=== PATIENT | female | born 1945 | race Caucasian/White ===

== ENCOUNTER 2017-11-04 09:09 | Inpatient (IN) ==
[2017-11-04] MEDS ORDERED: SODIUM CHLORIDE 0.9% 1,000 ML IV STA (10:12)
[2017-11-04 10:25] LABS: Basophils # 0.1 10*3/uL (0.0-0.2); Basophils % 0.6 % (0.0-0.8); Eosinophils % 0.3 % (0.00-10.9); Hematocrit 39.2 VOL% (35.7-47.0); Hemoglobin 12.8 GM/DL (12.0-16.0); Immature Granulocytes Absolute 0.13 #; Lymphocytes # 2.1 10*3/uL (1.4-4.0); Lymphocytes % 16.1 % (21.3-54.2); Mean Corpuscular HGB Conc 32.7 GM/DL (32-36); Mean Corpuscular Hemoglobin 30 PG (27-34); Mean Corpuscular Volume 91.2 FL (87-102); Monocytes % 7.5 % (1.7-12.7); Neutrophils # 9.5 10*3/uL (1.4-7.4); Neutrophils % 74.5 % (38.7-73.9); Platelet Count 223 T/CUMM (130-400); Red Cell Distribution Width 14.3 % (9.3-17.3); White Blood Count 12.7 T/CUMM (4-12)
[2017-11-04 10:31] LABS: PT Patient Result 10.8 SECS; Partial Thromboplastin Time 24.2 SECS (0-40)
[2017-11-04 10:38] LABS: Alanine Aminotransferase 35 U/L (13-56); Albumin 3.2 G/DL (3.4-5.0); Alkaline Phosphatase 96 U/L (45-117); Aspartate Amino Transferase 26 U/L (0-37); Blood Urea Nitrogen 13 MG/DL (7-18); Calcium 8.9 MG/DL (8.5-10.1); Glucose 143 MG/DL (74-106); Magnesium 1.9 MG/DL (1.8-2.4); Sodium 136 MMOL/L (136-145); Total Protein 6.8 G/DL (6.4-8.3); Troponin I Only < 0.015 NG/ML (0.00-0.045)
[2017-11-04] MEDS ORDERED: DILTIAZEM 100 MG VIAL.ADD IV ONE (10:49)
[2017-11-04] MEDS ORDERED: SODIUM CHLORIDE 0.9% 100 ML IV ONE (10:49)
[2017-11-04] MEDS: DILTIAZEM INJ 100 MG in SODIUM CHLORIDE 0.9% 100 ML IV SCH (11:00)
[2017-11-04 11:28] LABS: T4 (Thyroxine) 8.8 UG/DL (4.7-13.3); Thyroid Stimulating Hormone 4.57 uIU/ml (0.358-3.74)
[2017-11-04 11:39] LABS: Apearance,Urine CLEAR (Clear); Bilirubin,Urine Negative (Negative); Blood, Urine Negative (Negative); Glucose,Urine (UA) Negative (Negative); Hyaline Casts,Urine 4 /LPF (0-3); Ketones,Urine Negative (Negative); Mucus,Urine Occasional /LPF (Occasional); Nitrite,Urine Negative (Negative); Protein,Urine Negative; Urine Color Yellow (Yellow); Urine Specific Gravity 1.008 (1.001-1.035); Urine Urobilinogen < 2.0 EU/DL (0.2-1.0); WBC,Urine <1 /HPF (0-6)
[2017-11-04] MEDS ORDERED: LEVOFLOXACIN INJ 750 MG in PREMIX 1 EACH IV STA (11:52)
[2017-11-04] MEDS ORDERED: ALBUTEROL 2.5 MG/3 ML NEB RESP TX PRN (12:33)
[2017-11-04] MEDS ORDERED: ACETAMINOPHEN 325 MG TABLET PO PRN (12:44)
[2017-11-04] MEDS ORDERED: ONDANSETRON 4 MG/2 ML VIAL IV PRN (12:44)
[2017-11-04] MEDS ORDERED: LEVOFLOXACIN INJ 150 ML IV ONE (13:21)
[2017-11-04] MEDS ORDERED: SODIUM CHLORIDE 0.9% 1,000 ML IV ONE (13:43)
[2017-11-04] MEDS: SODIUM CHLORIDE 0.9% 1,000 ML IV SCH ×3 (13:50→22:40)
[2017-11-04] MEDS ORDERED: ENOXAPARIN 60 MG/0.6 ML SYRINGE SUBCUT SCH (15:00)
[2017-11-04] MEDS ORDERED: OSELTAMIVIR 75 MG CAPSULE PO SCH (15:00)
[2017-11-04] MEDS ORDERED: METOPROLOL TARTRATE 25 MG TABLET PO SCH (15:00)
[2017-11-04] MEDS: ALBUTEROL 2.5 MG/3 ML NEB RESP TX SCH ×3 (15:58→23:39)
[2017-11-04] MEDS: PIPERACILLIN/TAZOBACTAM 3,375 MG in SODIUM CHLORIDE 0.9% 100 ML IV SCH ×2 (16:36→23:48)
[2017-11-04] MEDS ORDERED: ALBUTEROL/IPRATROPIUM 3 ML NEB RESP TX SCH (19:00)
[2017-11-04] MEDS ORDERED: ENOXAPARIN 40 MG/0.4 ML SYRINGE SUBCUT SCH (21:00)
[2017-11-04] MEDS ORDERED: SOTALOL 80 MG TABLET PO SCH (21:00)
[2017-11-04] MEDS: APIXABAN 5 MG TABLET PO SCH (21:09)
[2017-11-04] MEDS: SOTALOL 80 MG TABLET PO SCH (21:09)
[2017-11-04] MEDS: OSELTAMIVIR 75 MG CAPSULE PO SCH (21:09)
[2017-11-04] MEDS ORDERED: guaiFENesin 200 MG/10 ML UDCUP PO PRN (22:20)
[2017-11-05] MEDS: traZODone 50 MG TABLET PO SCH ×2 (00:01→20:39)
[2017-11-05] MEDS: ALBUTEROL 2.5 MG/3 ML NEB RESP TX SCH ×5 (02:50→20:44)
[2017-11-05 03:22] LABS: Basophils # 0.1 10*3/uL (0.0-0.2); Basophils % 0.5 % (0.0-0.8); Eosinophils % 0.3 % (0.00-10.9); Hematocrit 34.4 VOL% (35.7-47.0); Hemoglobin 11.4 GM/DL (12.0-16.0); Immature Granulocytes % 0.4 %; Immature Granulocytes Absolute 0.04 #; Lymphocytes # 1.4 10*3/uL (1.4-4.0); Mean Corpuscular HGB Conc 33.1 GM/DL (32-36); Mean Corpuscular Hemoglobin 30 PG (27-34); Mean Corpuscular Volume 90.3 FL (87-102); Mean Platelet Volume 11.2 FL (9.6-12.0); Monocytes # 0.9 10*3/uL (0.11-0.8); Monocytes % 8.4 % (1.7-12.7); Neutrophils # 7.7 10*3/uL (1.4-7.4); Neutrophils % 76.4 % (38.7-73.9); Platelet Count 210 T/CUMM (130-400); Red Blood Count 3.81 MC/CUMM (3.8-5.5); Red Cell Distribution Width 14.2 % (9.3-17.3); White Blood Count 10.1 T/CUMM (4-12)
[2017-11-05 03:30] LABS: INR 1.1; PT Patient Result 11.4 SECS
[2017-11-05 03:52] LABS: Calcium 8.1 MG/DL (8.5-10.1); Osmolality,Calculated 282.1 MOS/KG (273-304)
[2017-11-05] MEDS: SODIUM CHLORIDE 0.9% 1,000 ML IV SCH ×3 (06:12→21:10)
[2017-11-05] MEDS: DILTIAZEM INJ 100 MG in SODIUM CHLORIDE 0.9% 100 ML IV SCH ×2 (06:23→12:11)
[2017-11-05] MEDS: LEVOTHYROXINE 50 MCG TABLET PO SCH (06:24)
[2017-11-05] MEDS: APIXABAN 5 MG TABLET PO SCH ×2 (09:46→20:36)
[2017-11-05] MEDS: PANTOPRAZOLE 40 MG TABLET PO SCH (09:46)
[2017-11-05] MEDS: PIPERACILLIN/TAZOBACTAM 3,375 MG in SODIUM CHLORIDE 0.9% 100 ML IV SCH ×3 (09:46→23:57)
[2017-11-05] MEDS: SOTALOL 80 MG TABLET PO SCH ×2 (09:46→20:35)
[2017-11-05] MEDS: OSELTAMIVIR 75 MG CAPSULE PO SCH ×2 (09:46→20:36)
[2017-11-05] MEDS: DILTIAZEM CD 120 MG CAPSULE PO SCH ×2 (12:12→20:36)
[2017-11-05] MEDS ORDERED: LEVOFLOXACIN INJ 500 MG in PREMIX 1 EACH IV SCH (13:00)
[2017-11-05] MEDS: LORazepam 0.5 MG TABLET PO SCH (20:36)
[2017-11-05] MEDS ORDERED: LORazepam 0.5 MG TABLET PO SCH (21:00)
[2017-11-06] MEDS: ALBUTEROL 2.5 MG/3 ML NEB RESP TX SCH ×7 (00:27→23:57)
[2017-11-06 06:34] LABS: Magnesium 1.9 MG/DL (1.8-2.4); Osmolality,Calculated 279.1 MOS/KG (273-304)
[2017-11-06] MEDS ORDERED: ALBUTEROL 2.5 MG/3 ML NEB RESP TX ONE (06:53)
[2017-11-06] MEDS: SOTALOL 80 MG TABLET PO SCH ×2 (09:47→20:52)
[2017-11-06] MEDS: APIXABAN 5 MG TABLET PO SCH ×2 (09:47→20:53)
[2017-11-06] MEDS: PANTOPRAZOLE 40 MG TABLET PO SCH (09:48)
[2017-11-06] MEDS: DILTIAZEM CD 120 MG CAPSULE PO SCH ×2 (09:48→20:53)
[2017-11-06] MEDS: OSELTAMIVIR 75 MG CAPSULE PO SCH ×2 (09:48→20:53)
[2017-11-06] MEDS: LORazepam 0.5 MG TABLET PO SCH ×2 (09:49→20:51)
[2017-11-06] MEDS: LEVOTHYROXINE 50 MCG TABLET PO SCH (09:51)
[2017-11-06] MEDS: PIPERACILLIN/TAZOBACTAM 3,375 MG in SODIUM CHLORIDE 0.9% 100 ML IV SCH ×2 (09:51→16:00)
[2017-11-06] MEDS: SODIUM CHLORIDE 0.9% 1,000 ML IV SCH ×2 (13:04→15:05)
[2017-11-06] MEDS ORDERED: diphenhydrAMINE 2% CREAM 28 GM TUBE TOP PRN (17:48)
[2017-11-06] MEDS: traZODone 50 MG TABLET PO SCH (20:53)
[2017-11-07] MEDS: PIPERACILLIN/TAZOBACTAM 3,375 MG in SODIUM CHLORIDE 0.9% 100 ML IV SCH ×3 (00:16→16:00)
[2017-11-07] MEDS: ALBUTEROL 2.5 MG/3 ML NEB RESP TX SCH ×5 (03:52→21:02)
[2017-11-07 05:10] LABS: Basophils # 0.1 10*3/uL (0.0-0.2); Basophils % 0.8 % (0.0-0.8); Eosinophils # 0.2 10*3/uL (0.0-0.87); Eosinophils % 2.5 % (0.00-10.9); Hematocrit 33.2 VOL% (35.7-47.0); Hemoglobin 10.9 GM/DL (12.0-16.0); Immature Granulocytes % 0.7 %; Immature Granulocytes Absolute 0.05 #; Lymphocytes # 1.9 10*3/uL (1.4-4.0); Lymphocytes % 26.5 % (21.3-54.2); Mean Corpuscular HGB Conc 32.8 GM/DL (32-36); Mean Corpuscular Hemoglobin 30 PG (27-34); Mean Corpuscular Volume 91.2 FL (87-102); Mean Platelet Volume 10.4 FL (9.6-12.0); Monocytes # 0.7 10*3/uL (0.11-0.8); Monocytes % 9.5 % (1.7-12.7); Neutrophils # 4.3 10*3/uL (1.4-7.4); Platelet Count 241 T/CUMM (130-400); Red Blood Count 3.64 MC/CUMM (3.8-5.5); Red Cell Distribution Width 13.7 % (9.3-17.3); White Blood Count 7.1 T/CUMM (4-12)
[2017-11-07 05:48] LABS: Calcium 8.7 MG/DL (8.5-10.1); Potassium 3.9 MMOL/L (3.5-5.1)
[2017-11-07] MEDS: LEVOTHYROXINE 50 MCG TABLET PO SCH (06:12)
[2017-11-07] MEDS: SOTALOL 80 MG TABLET PO SCH ×2 (08:56→20:40)
[2017-11-07] MEDS: DILTIAZEM CD 120 MG CAPSULE PO SCH ×2 (08:56→20:40)
[2017-11-07] MEDS: OSELTAMIVIR 75 MG CAPSULE PO SCH ×2 (08:57→20:40)
[2017-11-07] MEDS: APIXABAN 5 MG TABLET PO SCH ×2 (08:57→20:40)
[2017-11-07] MEDS: PANTOPRAZOLE 40 MG TABLET PO SCH (08:57)
[2017-11-07] MEDS: LORazepam 0.5 MG TABLET PO SCH ×2 (09:20→20:40)
[2017-11-07] MEDS: traZODone 50 MG TABLET PO SCH (20:41)
[2017-11-08] MEDS: ALBUTEROL 2.5 MG/3 ML NEB RESP TX SCH ×4 (00:23→11:03)
[2017-11-08] MEDS: PIPERACILLIN/TAZOBACTAM 3,375 MG in SODIUM CHLORIDE 0.9% 100 ML IV SCH ×2 (00:46→07:55)
[2017-11-08 05:53] LABS: Basophils # 0.1 10*3/uL (0.0-0.2); Basophils % 0.9 % (0.0-0.8); Eosinophils # 0.2 10*3/uL (0.0-0.87); Eosinophils % 2.5 % (0.00-10.9); Hematocrit 35.6 VOL% (35.7-47.0); Hemoglobin 11.5 GM/DL (12.0-16.0); Immature Granulocytes % 1.1 %; Immature Granulocytes Absolute 0.08 #; Lymphocytes # 1.9 10*3/uL (1.4-4.0); Lymphocytes % 24.6 % (21.3-54.2); Mean Corpuscular HGB Conc 32.3 GM/DL (32-36); Mean Corpuscular Hemoglobin 30 PG (27-34); Mean Corpuscular Volume 92.7 FL (87-102); Mean Platelet Volume 10.6 FL (9.6-12.0); Monocytes # 0.6 10*3/uL (0.11-0.8); Monocytes % 7.7 % (1.7-12.7); Neutrophils # 4.7 10*3/uL (1.4-7.4); Neutrophils % 63.2 % (38.7-73.9); Platelet Count 284 T/CUMM (130-400); Red Blood Count 3.84 MC/CUMM (3.8-5.5); Red Cell Distribution Width 13.8 % (9.3-17.3); White Blood Count 7.5 T/CUMM (4-12)
[2017-11-08] MEDS: LEVOTHYROXINE 50 MCG TABLET PO SCH (06:14)
[2017-11-08 06:15] LABS: Calcium 9.1 MG/DL (8.5-10.1); Magnesium 2.2 MG/DL (1.8-2.4); Osmolality,Calculated 279.3 MOS/KG (273-304); Potassium 4.1 MMOL/L (3.5-5.1)
[2017-11-08] MEDS: OSELTAMIVIR 75 MG CAPSULE PO SCH ×2 (07:55→08:45)
[2017-11-08] MEDS: APIXABAN 5 MG TABLET PO SCH ×2 (07:55→08:45)
[2017-11-08] MEDS: PANTOPRAZOLE 40 MG TABLET PO SCH ×2 (07:55→08:45)
[2017-11-08] MEDS: SOTALOL 80 MG TABLET PO SCH ×2 (07:56→08:44)
[2017-11-08] MEDS: DILTIAZEM CD 120 MG CAPSULE PO SCH ×2 (07:56→08:44)
[2017-11-08] MEDS: LORazepam 0.5 MG TABLET PO SCH (08:11)
[2017-11-08 12:20] VITALS: BP 121/80
== END 2017-11-08 13:30 | disposition home or self-care (01) | DRG 308 ==
LOC: N.ED 09:09 → N.EDINP 12:32 → SUATTDRO 12:32 → N.TELEN 14:25
PROVIDERS: ADMIT Internal Medicine; ATTEND Internal Medicine

== ENCOUNTER 2022-01-05 10:21 | Inpatient (IN) ==
[2022-01-05] MEDS ORDERED: ACETAMINOPHEN 325 MG TABLET ONE (11:42)
[2022-01-05] MEDS ORDERED: ACETAMINOPHEN 325 MG TABLET PO ONE (11:57)
[2022-01-05 12:01] LABS: Basophils # 0.1 10*3/uL (0.0-0.2); Basophils % 0.9 % (0.0-0.8); Eosinophils # 0.2 10*3/uL (0.0-0.87); Eosinophils % 3.1 % (0.00-10.9); Hematocrit 43.6 VOL% (35.7-47.0); Hemoglobin 14.2 GM/DL (12.0-16.0); Immature Granulocytes % 0.3 %; Immature Granulocytes Absolute 0.02 #; Lymphocytes # 2.3 10*3/uL (1.4-4.0); Lymphocytes % 29.4 % (21.3-54.2); Mean Corpuscular HGB Conc 32.6 GM/DL (32-36); Mean Corpuscular Volume 90.3 FL (87-102); Mean Platelet Volume 10.8 FL (9.6-12.0); Monocytes % 11.3 % (1.7-12.7); Platelet Count 160 T/CUMM (130-400); Red Blood Count 4.83 MC/CUMM (3.8-5.5); Red Cell Distribution Width 13.4 % (9.3-17.3); White Blood Count 7.8 T/CUMM (4-12)
[2022-01-05 12:26] LABS: Albumin 3.6 G/DL (3.4-5.0); Bilirubin,Total 0.7 MG/DL (0.20-1.00); Calcium 9.7 MG/DL (8.5-10.1); Osmolality,Calculated 277.5 MOS/KG (273-304); Potassium 3.8 MMOL/L (3.5-5.1); Total Protein 7.2 G/DL (6.4-8.2)
[2022-01-05] MEDS ORDERED: DILTIAZEM 50 MG/10 ML VIAL IV STA (13:12)
[2022-01-05] MEDS ORDERED: ONDANSETRON 4 MG/2 ML VIAL IV PRN (14:10)
[2022-01-05] MEDS ORDERED: GLUCAGON 1 MG VIAL IM PRN (14:10)
[2022-01-05] MEDS ORDERED: DEXTROSE 10% 250 ML BAG IV PRN (14:21)
[2022-01-05] MEDS ORDERED: DILTIAZEM INJ 100 MG in SODIUM CHLORIDE 0.9% 100 ML IV SCH (15:00)
[2022-01-05] MEDS: ENOXAPARIN 40 MG/0.4 ML SYRINGE SUBCUT SCH (15:02)
[2022-01-05] MEDS ORDERED: DIGOXIN 0.5 MG/2 ML AMP IV STA (15:26)
[2022-01-05] MEDS: METOPROLOL TARTRATE 25 MG TABLET PO SCH ×2 (16:00→20:48)
[2022-01-05] MEDS: SODIUM CHLORIDE 0.45% 1,000 ML IV SCH (16:07)
[2022-01-05] MEDS: ASPIRIN EC 325 MG TABLET PO SCH (20:48)
[2022-01-05] MEDS: ASCORBIC ACID 500 MG TABLET PO SCH (20:48)
[2022-01-05] MEDS: DOCUSATE SODIUM 100 MG CAPSULE PO PRN (20:51)
[2022-01-05] MEDS ORDERED: SOTALOL 80 MG TABLET PO SCH (21:00)
[2022-01-06] MEDS: busPIRone 5 MG TABLET PO SCH ×5 (00:18→21:14)
[2022-01-06 04:31] LABS: Basophils # 0.1 10*3/uL (0.0-0.2); Eosinophils # 0.2 10*3/uL (0.0-0.87); Eosinophils % 2.9 % (0.00-10.9); Hematocrit 39.6 VOL% (35.7-47.0); Hemoglobin 12.8 GM/DL (12.0-16.0); Immature Granulocytes % 0.4 %; Immature Granulocytes Absolute 0.03 #; Lymphocytes # 2.6 10*3/uL (1.4-4.0); Lymphocytes % 30.6 % (21.3-54.2); Mean Corpuscular HGB Conc 32.3 GM/DL (32-36); Mean Corpuscular Volume 91.7 FL (87-102); Mean Platelet Volume 11.1 FL (9.6-12.0); Monocytes % 11.3 % (1.7-12.7); Neutrophils % 53.8 % (38.7-73.9); Platelet Count 160 T/CUMM (130-400); Red Blood Count 4.32 MC/CUMM (3.8-5.5); Red Cell Distribution Width 13.5 % (9.3-17.3); White Blood Count 8.3 T/CUMM (4-12)
[2022-01-06 04:42] LABS: Calcium 8.9 MG/DL (8.5-10.1); Osmolality,Calculated 275.7 MOS/KG (273-304); Potassium 3.7 MMOL/L (3.5-5.1)
[2022-01-06] MEDS: LEVOTHYROXINE 50 MCG TABLET PO SCH (06:31)
[2022-01-06] MEDS ORDERED: AMIODARONE INJ 150 MG in DEXTROSE 5% 100 ML IV ONE (08:24)
[2022-01-06] MEDS ORDERED: AMIODARONE INJ 450 MG in DEXTROSE 5% 241 ML IV SCH (08:30)
[2022-01-06] MEDS ORDERED: [UNRECOGNIZED DRUG - OTHER] PO SCH (09:00)
[2022-01-06] MEDS ORDERED: amLODIPine 2.5 MG TABLET PO SCH (09:00)
[2022-01-06] MEDS ORDERED: BIOTIN 1000 MCG PO SCH (09:00)
[2022-01-06] MEDS: ASCORBIC ACID 500 MG TABLET PO SCH ×2 (09:50→21:06)
[2022-01-06] MEDS: ATORVASTATIN 10 MG TABLET PO SCH (09:50)
[2022-01-06] MEDS: METOPROLOL TARTRATE 25 MG TABLET PO SCH ×2 (09:50→21:06)
[2022-01-06] MEDS: COENZYME Q10 100 MG CAPSULE PO SCH (09:50)
[2022-01-06] MEDS ORDERED: propofoL 200 MG/20 ML VIAL IV ONE (12:08)
[2022-01-06] MEDS ORDERED: LIDOCAINE 2% 5 ML VIAL ONE (12:08)
[2022-01-06] MEDS: ENOXAPARIN 40 MG/0.4 ML SYRINGE SUBCUT SCH (17:50)
[2022-01-06] MEDS: AMIODARONE INJ 450 MG in DEXTROSE 5% 241 ML IV SCH (17:51)
[2022-01-06] MEDS: SODIUM CHLORIDE 0.45% 1,000 ML IV SCH ×2 (18:50→19:03)
[2022-01-06] MEDS: DOCUSATE SODIUM 100 MG CAPSULE PO PRN (18:50)
[2022-01-06] MEDS: ASPIRIN EC 325 MG TABLET PO SCH (21:06)
[2022-01-07 05:43] LABS: Basophils % 0.6 % (0.0-0.8); Eosinophils # 0.2 10*3/uL (0.0-0.87); Hematocrit 35.4 VOL% (35.7-47.0); Hemoglobin 11.2 GM/DL (12.0-16.0); Immature Granulocytes % 0.3 %; Immature Granulocytes Absolute 0.02 #; Lymphocytes # 1.6 10*3/uL (1.4-4.0); Lymphocytes % 22.5 % (21.3-54.2); Mean Corpuscular HGB Conc 31.6 GM/DL (32-36); Mean Corpuscular Volume 92.9 FL (87-102); Monocytes % 11.2 % (1.7-12.7); Neutrophils % 62.4 % (38.7-73.9); Platelet Count 139 T/CUMM (130-400); Red Blood Count 3.81 MC/CUMM (3.8-5.5); Red Cell Distribution Width 13.6 % (9.3-17.3); White Blood Count 7.3 T/CUMM (4-12)
[2022-01-07] MEDS: DOCUSATE SODIUM 100 MG CAPSULE PO PRN (06:01)
[2022-01-07] MEDS: LEVOTHYROXINE 50 MCG TABLET PO SCH (06:01)
[2022-01-07 06:07] LABS: Potassium 3.7 MMOL/L (3.5-5.1)
[2022-01-07] MEDS: ATORVASTATIN 10 MG TABLET PO SCH (10:05)
[2022-01-07] MEDS: METOPROLOL TARTRATE 25 MG TABLET PO SCH (10:05)
[2022-01-07] MEDS: busPIRone 5 MG TABLET PO SCH ×2 (10:05→14:53)
[2022-01-07] MEDS: ASCORBIC ACID 500 MG TABLET PO SCH (10:05)
[2022-01-07] MEDS: COENZYME Q10 100 MG CAPSULE PO SCH (10:06)
[2022-01-07] MEDS: SODIUM CHLORIDE 0.45% 1,000 ML IV SCH (11:37)
[2022-01-07] MEDS: AMIODARONE INJ 450 MG in DEXTROSE 5% 241 ML IV SCH ×2 (11:37→12:42)
[2022-01-07] MEDS: ENOXAPARIN 40 MG/0.4 ML SYRINGE SUBCUT SCH (14:57)
[2022-01-07 16:22] VITALS: BP 133/69
[2022-01-07] MEDS ORDERED: METOPROLOL TARTRATE 50 MG TABLET PO SCH (21:00)
[2022-01-07] MEDS ORDERED: AMIODARONE 200 MG TABLET PO SCH (21:00)
[2022-01-15] MEDS ORDERED: AMIODARONE 200 MG TABLET PO SCH (09:00)
== END 2022-01-07 16:05 | disposition home health service (06) | DRG 282 ==
LOC: N.ED 10:21 → N.EDINP 10:21 → SUATTDRO 13:39 → N.TELES 01-06 00:01 → N.TELEN 01-06 00:27 → SUATTDRO 01-06 12:47
PROVIDERS: ADMIT Hospitalist; ATTEND Internal Medicine